=== PATIENT | female | born 1960 | race Caucasian/White ===

== ENCOUNTER → 2016-03-26 | Outpatient (CLI) | payer BC | LOC: GMA 14:45 | PROVIDERS: ATTEND Nurse Practitioner Family | DX: E05.20 Thyrotoxicosis with toxic multinodular goiter without thyrotoxic crisis or storm (principal) ==

== ENCOUNTER → 2016-04-03 | Outpatient (CLI) | payer BC ==
--- NOTE | 2016-04-04 09:06 | MAM ---
EXAM DESCRIPTION: MAMMO BREAST SCREENING BILATERAL CAD, images were reviewed with CAD technology, R2 computer-aided detection. CLINICAL HISTORY: [facility]. COMPARISON: 2012. FINDINGS: Routine views are obtained. Scattered glandular pattern with diffuse nodularity and increased mammographic density. Stable pattern. No dominant mass, architectural distortion or clustered microcalcification.. IMPRESSION: Benign exam. BIRAD CATEGORY: 2 BENIGN RECOMMENDATIONS: FOLLOW-UP: Routine screening mammogram in one year. According to the [employer], yearly mammograms are recommended starting at age 40 and continuing as long as a woman is in good health. Any breast change noted on a breast self-exam should be reported promptly to the patient's healthcare provider. Breast MRI is recommended for women with an approximately 20-25% or greater lifetime risk of breast cancer, including women with a strong family history of breast or ovarian cancer and women who have been treated for Hodgkin's disease. Electronically signed by: Stephie Diallo 04/04/2016 09:04
== END ==
LOC: MAMMO 16:01
PROVIDERS: ATTEND Family Medicine
DX: Z12.31 Encounter for screening mammogram for malignant neoplasm of breast (principal)
CPT/HCPCS: 77052; G0202

== ENCOUNTER → 2016-04-20 | Outpatient (CLI) | payer BC, SELFPAY ==
--- NOTE | 2016-04-21 14:45 | US ---
EXAM DESCRIPTION: US THYROID CLINICAL HISTORY: 56 y/o F, TOXIC MULTINOIDULAR GOITER COMPARISON: November 16, 2010 FINDINGS: The right thyroid lobe measures 4.4 cm in length period there is a 2.1 cm heterogeneous solid nodule in the mid right thyroid lobe with a small internal calcification, stable period there is a 2nd 1.2 cm cystic and solid nodule in the inferior pole of the right thyroid lobe which was not seen on the prior exam. The thyroid isthmus not thickened. The left thyroid lobe measures at least 2.7 cm in length but is otherwise unremarkable period IMPRESSION: Two right thyroid nodules, 1 stable from November, and a 2nd 12 mm cystic and solid nodule which was not seen on the prior exam and may be new. This would be amenable to ultrasound-guided biopsy. Alternatively, followup ultrasound in 6 months is recommended to document stability. Electronically signed by: Doc Alanis DO 04/21/2016 14:43
== END | disposition home or self-care (01) ==
LOC: US 10:51
PROVIDERS: ATTEND Internal Medicine Endocrinology, Diabetes & Metabolism
DX: E05.20 Thyrotoxicosis with toxic multinodular goiter without thyrotoxic crisis or storm (principal)

== ENCOUNTER → 2017-03-19 | Outpatient (CLI) | payer SELFPAY | END | disposition home or self-care (01) | LOC: GMA 18:14 | PROVIDERS: ATTEND Nurse Practitioner Family | DX: N30.00 Acute cystitis without hematuria (principal) ==

== ENCOUNTER → 2017-04-09 | Outpatient (CLI) | payer BC, OTHER ==
--- NOTE | 2017-04-09 11:31 | CT ---
EXAM DESCRIPTION: Abdomen/Pelvis w/wo Contrast: Computed Tomography. CLINICAL HISTORY: SUPRAPUBIC ABD PAIN COMPARISON: None. TECHNIQUE: Spiral-axial scans at 5.0 mm intervals through the abdomen and pelvis before and after standard dose nonionic IV contrast. Coronal and sagittal 2.0 mm reconstructions. 5 mm Delayed helical-axial scans, liver through the pubic symphysis. No adverse reactions. Total Exam DLP 1561.15 mGy - cm. This exam was performed according to our departmental CT dose-optimization program which includes automated exposure control, adjustment of the mA and/or kV according to patient size and/or use of iterative reconstruction technique; to reduce radiation dose to as low as reasonably achievable (ALARA). FINDINGS: Lung bases and pleura: Negative. Liver, Stomach, Spleen, Adrenal Glands: 1.2 cm well-defined lesion in the lateral segment of the left hepatic lobe with Hounsfield density +20-+38 HU. Stomach and other solid organs unremarkable.. Pancreas, Gallbladder, Ducts: Gallbladder visualized minimal wall enhancement. Normal caliber of the duct. Pancreas negative. Kidneys and Ureters: 1.1 cm nonenhancing object in the lateral upper pole of the right kidney with Hounsfield density densities ranging from +30-+40 HU. No large radiodense stones hydronephrosis or perinephric fluid bilaterally and ureters are unremarkable. Mesentery: No free air or free fluid in the peritoneum. No fatty stranding or fascial thickening. Aorta: Minimal atherosclerotic calcification. Small Bowel: Some loops are not distended by gas and fluid but no significant distention or air-fluid levels. Terminal Ileum/Cecum: Normal caliber of the structures in the appendix which also contains gas. Normal density surrounding fat. Colon: Redundancy of the transverse colon. Fecal matter distending the ascending colon, proximal transverse colon and gas distending the splenic flexure but no air-fluid level. Pelvic Organs: Uterus not retroverted. Bilateral ovaries are noted. No fluid in the cul-de-sac. No pelvic mass. No radiodense stones in the urinary bladder. Spine and Bony Pelvis: Calcification in some of the discs. Dextroscoliosis thoracolumbar junction and minimal levoscoliosis L5-S1. No bone destruction. Abdominal Wall/Back Soft Tissues: Minimal fatty diastases at the umbilicus but no hernia. IMPRESSION: 1. 1.1 cm object in the right kidney is most likely a complicated cyst or a cyst containing debris. No wall thickening and enhancement or calcification. This is a Bosniak class II cyst, and no imaging follow-up is recommended. 2. Probable cyst in the lateral segment of the left hepatic lobe. Somewhat high density, but with well-defined veras. Consider liver ultrasound follow-up. Electronically signed by: Ayaan Zuluaga MD 04/09/2017 11:30 AM [facility]
== END | disposition home or self-care (01) ==
LOC: CT 07:41
PROVIDERS: ATTEND Family Medicine
DX: R10.815 Periumbilic abdominal tenderness (principal); R10.2 Pelvic and perineal pain

== ENCOUNTER → 2017-04-25 | Outpatient (CLI) | payer OTHER, SELFPAY ==
--- NOTE | 2017-04-25 22:19 | US ---
EXAM DESCRIPTION: Pelvis Transvaginal: Ultrasound. CLINICAL HISTORY: GEN ABD PN COMPARISON: Abdominal ultrasound on the same visit. TECHNIQUE: Endovaginal scanning. Two-dimensional and Doppler modes. FINDINGS: Uterus 6.9 x 4.5 x 3.1 cm. Estimated volume. Endometrial thickness 7.7 mm. No endometrial fluid. The myometrium appears heterogeneous. Hyperechoic mass in the myometrium measuring 2.1 x 1.4 x 1.2 cm. The uterus is not retroverted. Cervix unremarkable. Cul-de-sac contains no fluid. Right ovary 1.8 x 1.8 x 1.7 cm. Normal Vascularity Doppler. Heterogeneous echoes. 7 and 8 mm follicles but no cysts. No adnexal mass or free fluid. Left ovary 2.0 x 1.6 x 1.2 cm. Normal Vascularity Doppler. Several follicles but no cysts. No adnexal mass or free fluid. IMPRESSION: 1. Endometrium is not thickened if patient is premenopausal. No endometrial fluid. Bilateral ovarian follicles were also seen. No ovarian cysts. No fluid in the cul-de-sac. Electronically signed by: Ayaan Zuluaga MD 04/25/2017 10:18 PM [facility]
--- NOTE | 2017-04-26 11:39 | US ---
EXAM DESCRIPTION: Abdomen,Complete: Ultrasound. CLINICAL HISTORY: GEN ABD PAIN COMPARISON: None Available. TECHNIQUE: Transabdominal scannin-dimensional and Doppler modes. FINDINGS: Gallbladder: No echogenic stones or sludge. Echogenic object on the wall which does not move with patient change in position. No echogenic shadowing. 3.1 mm diameter. Wall thickness 2.1 mm. Nontender with transducer pressure. No surrounding fluid. Common bile duct: Normal caliber 3.5 mm. Liver: Normal echogenicity, except for anechoic object 1.4 x 1.6 cm in the left lobe subcapsular, nonvascular and well-defined veras. Normal intrahepatic ducts. Smooth capsule. Hepatopedal flow of the portal vein. Right lobe long axis within normal range. Pancreas: Normal size and echogenicity. Duct not seen. Abdominal aorta: Normal caliber from proximal segment to the bifurcation ranging from 1.8-1.7 cm. IVC: visualized; normal caliber. Spleen normal echogenicity; long axis measurement is 10.7 cm. Right kidney: Long axis is 8.7 cm. 15 x 10 mm hypoechoic lesion in the cortex with echogenic calcification or fat. Normal cortical thickness. No hydronephrosis. Left kidney: Long axis is 10.1 cm with normal echogenicity and thickness of the cortex. No hydronephrosis. IMPRESSION: 1. Hypoechoic 15 mm lesion in the right renal cortex with central fatty or calcific deposit. This could represent a complex cyst. Recommend follow-up CT scan without and with IV contrast. 2. Probable polyp in the gallbladder. No stones or sludge. No wall thickening or fluid. Nontender. 3. Normal size and echogenicity of the liver except for a 1.6 cm cyst in the left lobe. 4. Pancreas spleen and left kidney are unremarkable. IVC was visualized. Aorta normal caliber, proximal to distal. Electronically signed by: Ayaan Zuluaga MD 04/26/2017 11:38 AM [facility]
== END ==
LOC: US 13:30
PROVIDERS: ATTEND Nurse Practitioner Family
DX: R10.84 Generalized abdominal pain (principal)

== ENCOUNTER → 2017-09-11 | Outpatient (CLI) | payer BC ==
--- NOTE | 2017-09-11 08:56 | MRI ---
CLINICAL HISTORY: 57 years Female, [facility] COMPARISON: None available. TECHNIQUE: Multiplanar multiecho imaging of the brain was performed before and after the administration of intravenous contrast. FINDINGS: No acute major vascular territorial infarct or acute intraparenchymal hemorrhage. No intra-axial or extra-axial fluid collections are identified. No space-occupying lesion is identified. The cisterns and ventricles appear normal in caliber. The sella and suprasellar regions demonstrate no gross abnormality. Low lying cerebellar tonsils are noted. The visualized paranasal sinuses and mastoid air cells appear normal. The globes are intact bilaterally. Review of the bones demonstrates no gross abnormality. IMPRESSION: Low lying cerebellar tonsils are noted. Otherwise, normal MRI of the brain. Electronically signed by: Amy Calloway MD 09/11/2017 8:55 AM CDT
== END ==
LOC: MRI 07:00
PROVIDERS: ATTEND Family Medicine
DX: R55 Syncope and collapse (principal)

== ENCOUNTER → 2017-12-27 | Outpatient (CLI) | payer BC | LOC: GMAM 13:53 | PROVIDERS: ATTEND Family Medicine | DX: E55.9 Vitamin D deficiency, unspecified (principal); D49.2 Neoplasm of unspecified behavior of bone, soft tissue, and skin ==

== ENCOUNTER → 2018-05-28 | Outpatient (CLI) | payer BC, OTHER ==
--- NOTE | 2018-05-29 13:27 | US ---
EXAM DESCRIPTION: Breast,Bilateral: Ultrasound CLINICAL HISTORY: 58 yearsFemaleABNORMAL MAMMO. Focal asymmetry in the right breast and architectural distortion in the left breast. COMPARISON: Bilateral diagnostic digital breast tomosynthesis examination today and bilateral screening tomosynthesis mammography 06/12/2018. TECHNIQUE: Transcutaneous scanning of the bilateral breasts utilizing gregorio-scale and Doppler modes. Scanning performed by the shipping/receiving manager; supervised by Dr. Zuluaga. FINDINGS: Scanning of the superior right breast 11:00 to 12:00 sectors heterogeneous mixture of fibroglandular tissues and fatty echotexture is. No dominant solid mass or distinct cyst. No parenchymal edema or large calcifications. No overlying skin changes. Normal vascularity. Scanning of the left breast upper aspect. Heterogeneous fibroglandular tissues and fatty echotexture. At the 12:00 position 7 cm from the nipple, mostly fibroglandular tissues. No dominant solid mass or distinct cyst. IMPRESSION: 1. Bi-Rads Category 2: Benign. 2. Please refer to bilateral diagnostic digital breast tomosynthesis examination and report on this visit. The FINDINGS and the FOLLOW-UP plan were reviewed in person with the patient after the examination. Written communication explaining the IMPRESSION and FOLLOW-UP will be mailed to the patient and referring care provider. Electronically signed by: Ayaan Zuluaga MD 05/29/2018 1:24 PM CDT
--- NOTE | 2018-05-29 16:51 | MAM ---
EXAM DESCRIPTION: 3D Diagnostic, Bilateral: Digital Mammography CLINICAL HISTORY: 58 yearsFemaleABNORMAL MAMMO . Architectural distortion 12:00 posterior third left breast. Focal asymmetry anterior third of the right breast. COMPARISON: Bilateral screening digital breast tomosynthesis 05/15/2018. Targeted bilateral breast ultrasound included with this examination... TECHNIQUE: Bilateral LM projection full-field images, digital mammographic tomosynthesis technique. Bilateral digital spot magnification central and anterior breast in the MLO and CC projections. CAD not available. FINDINGS: The breast parenchymal density pattern is: Heterogeneously dense breast tissue, which may obscure small masses. No skin thickening or nipple retraction calcifications scattered throughout the dense fibroglandular tissues bilaterally. Architectural distortion not well demonstrated on the left breast tomosynthesis or magnification images. Focal asymmetry not well demonstrated on tomosynthesis of the anterior right breast. Ultrasound: Scanning of the superior right breast 11:00 to 12:00 sectors heterogeneous mixture of fibroglandular tissues and fatty echotexture is. No dominant solid mass or distinct cyst. No parenchymal edema or large calcifications. No overlying skin changes. Normal vascularity. Scanning of the left breast upper aspect. Heterogeneous fibroglandular tissues and fatty echotexture. At the 12:00 position 7 cm from the nipple, mostly fibroglandular tissues. No dominant solid mass or distinct cyst. IMPRESSION: Benign exam. BIRAD CATEGORY: 2 BENIGN FINDINGS. RECOMMENDATIONS: FOLLOW UP: Return to routine digital bilateral mammographic screening, one year interval from April 2018. The FINDINGS and the FOLLOW-UP plan were reviewed in person with the patient after the examination. Written communication explaining the IMPRESSION and FOLLOW-UP will be mailed to the patient and referring care provider. According to the [employer], yearly mammograms are recommended starting at age 40 and continuing as long as a woman is in good health. Any breast change noted on a breast self-exam should be reported promptly to the patient's healthcare provider. Breast MRI is recommended for women with an approximately 20-25% or greater lifetime risk of breast cancer, including women with a strong family history of breast or ovarian cancer and women who have been treated for Hodgkin's disease. A negative mammographic report should not delay tissue diagnosis in patients with significant clinical history or physical findings. Extremely dense breast tissue limits the sensitivity of digital mammography. Electronically signed by: yAaan Zuluaga MD 05/29/2018 4:47 PM CDT
== END ==
LOC: MAMMO 13:46
PROVIDERS: ATTEND Family Medicine
DX: R92.8 Other abnormal and inconclusive findings on diagnostic imaging of breast (principal)
CPT/HCPCS: 76641; 77066; G0279

== ENCOUNTER → 2018-10-02 | Outpatient (CLI) | payer BC | LOC: GMAM 10:23 | PROVIDERS: ATTEND Family Medicine | DX: Z00.00 Encounter for general adult medical examination without abnormal findings (principal) ==

== ENCOUNTER → 2019-03-05 | Outpatient (CLI) | payer BC | LOC: GMAM 14:50 | PROVIDERS: ATTEND Family Medicine | DX: M10.00 Idiopathic gout, unspecified site (principal) ==

== ENCOUNTER → 2019-07-21 | Outpatient (CLI) | payer BC ==
--- NOTE | 2019-07-22 20:40 | MAM ---
EXAM DESCRIPTION: 3D Screening BILATERAL : Digital Mammography. CLINICAL HISTORY: 59 years Female SCREEN . No complaints. No personal or family history of breast cancer. Menarche age 11. Childbirth age 20. Menopause age 23. Currently on HRT.. Lifetime risk of developing breast cancer (Tyrer-Cuzick model)(%): 6.4. COMPARISON: Bilateral screening digital breast tomosynthesis April 2018.. Diagnostic digital breast tomosynthesis May 2018. TECHNIQUE: Bilateral CC and MLO projection full-field images, digital tomosynthesis mammographic technique. Bilateral digital 2-D full-field MLO images. CAD available for 2-D images. FINDINGS: The breast parenchymal density pattern is: Heterogeneously dense breast tissue, which may obscure small masses. No skin thickening or nipple retraction. Solitary microcalcifications. No new focal, stellate mass or density, focal asymmetry , and no suspicious microcalcifications bilaterally. Stable mammograms compared to prior study. Taking into account, differences in mammographic technique. IMPRESSION: Benign exam. BIRAD CATEGORY: 2 BENIGN FINDINGS. RECOMMENDATIONS: FOLLOW UP: Routine digital bilateral mammographic screening, one year interval from July 2019. Written communication explaining the IMPRESSION and follow-up, will be mailed to the patient and referring health care provider. According to the [employer], yearly mammograms are recommended starting at age 40 and continuing as long as a woman is in good health. Any breast change noted on a breast self-exam should be reported promptly to the patient's healthcare provider. Breast MRI is recommended for women with an approximately 20-25% or greater lifetime risk of breast cancer, including women with a strong family history of breast or ovarian cancer and women who have been treated for Hodgkin's disease. A negative mammographic report should not delay tissue diagnosis in patients with significant clinical history or physical findings. Extremely dense breast tissue limits the sensitivity of digital mammography. Electronically signed by: Ayaan Zuluaga MD 07/22/2019 8:38 PM CDT
== END ==
LOC: MAMMO 13:30
PROVIDERS: ATTEND Obstetrics & Gynecology
DX: Z12.31 Encounter for screening mammogram for malignant neoplasm of breast (principal)

== ENCOUNTER → 2019-11-20 | Outpatient (CLI) | payer BC | LOC: GMAHI 10:33 | PROVIDERS: ATTEND Nurse Practitioner Family | DX: E34.9 Endocrine disorder, unspecified (principal); I10 Essential (primary) hypertension; E55.9 Vitamin D deficiency, unspecified ==